=== PATIENT | female | born 1995 | race Caucasian/White ===

== ENCOUNTER 2017-02-24 18:00 | Emergency (ER) | payer OTHER, SELFPAY ==
[2017-02-24 18:23] VITALS: BP 121/66; PULSE 103; RESP 18; TEMP 37.2; O2SAT 99; BMI 24.5
[2017-02-24 18:50] LABS: Basophils % 0.1 % (0.1-2.0); Eosinophils # 0.1 K/mm3 (0.0-0.4); Eosinophils % 0.6 % (0.1-12.0); Hematocrit 38.3 % (37.0-47.0); Hemoglobin 13.1 g/dL (12.2-16.2); Lymphocytes # 0.6 K/mm3 (0.7-4.5); Lymphocytes % 3.6 K/mm3 (10-50); Mean Corpuscular HGB Conc 34.1 g/dL (31.8-35.4); Mean Corpuscular Hemoglobin 28.5 pg (27.0-31.2); Mean Corpuscular Volume 83.6 fl (81-99); Monocytes # 0.6 K/mm3 (0.1-1.0); Monocytes % 3.3 % (1.7-9.3); Neutrophils # 15.4 K/mm3 (1.8-7.8); Neutrophils % 92.3 % (37.0-80.0); Platelet Count 210 K/mm3 (142-424); Red Blood Count 4.58 M/mm3 (4.20-5.40); Red Cell Distribution Width 13.4 % (11.5-17.5); White Blood Count 16.7 K/mm3 (4.5-13.0)
[2017-02-24 18:56] LABS: MANUAL DIFFERENTIAL MANUAL DIFFERENTIAL (MANUAL DIFF)
[2017-02-24 19:04] LABS: Alanine Aminotransferase 14 U/L (12-78); Albumin Level 4.3 gm/dL (3.4-5.0); Albumin/Globulin Ratio 1.4 (1.1-1.8); Alkaline Phosphatase 73 U/L (46-116); Aspartate Amino Transferase 14 U/L (15-37); Bilirubin,Total 0.6 mg/dL (0.2-1.0); Blood Urea Nitrogen 10 mg/dL (7-18); Carbon Dioxide 23 mmol/L (21.0-32.0); Chloride 103 mmol/L (98-107); Creatinine Clearance Estimated 143 mL/min (0-300); Creatinine,Serum 0.59 mg/dL (0.55-1.02); Estimated Glomerular Filt Rate 131 ml/min (>60); GFR (African American) 159 ML/MIN (>60); Glucose 94 mg/dL (74-106); Sodium 138 mmol/L (136-145); Total Protein,Serum 7.3 gm/dL (6.4-8.2)
[2017-02-24 19:26] LABS: Lymphocytes % 6 % (10-50); Neutrophils % 87 % (42-76); Platelet Estimate Normal; RBC Morphology Normal; Total Cells Counted 100
[2017-02-24 19:43] LABS: Microscopic, Urine URINE MICROSCOPIC (MICROSCOPIC)
[2017-02-24 19:47] LABS: Appearance,Urine Clear (Clear); Color,Urine Yellow (Yellow); PH,Urine 5.5 (5.0-8.5)
[2017-02-24 19:48] LABS: Bilirubin,Urine Negative (Negative); Blood, Urine Negative (Negative); Glucose,Urine (UA) Negative (Negative); Ketones,Urine 2+ (Negative); Leukocyte Esterase,Urine Negative (Negative); Nitrate,Urine Negative (Negative); Protein,Urine Negative (Negative); Specific Gravity, Urine >= 1.030 (1.005-1.030); Urobilinogen,Urine 0.2 EU/dl (0.2)
[2017-02-24 19:49] LABS: Mucus,Urine 1+ /lpf; WBC,Urine Occasional #/hpf (0-3)
--- NOTE | 2017-02-24 20:39 | HMH.EDNVD ---
ED Disposition Clinical Impression: Dehydration Nausea and vomiting Qualifiers: Vomiting type: unspecified Vomiting Intractability: unspecified Qualified Code(s): R11.2 - Nausea with vomiting, unspecified Disposition: Home, Self-Care Condition on Discharge: Fair Instructions: DI for Dehydration -- Adult, Nausea and Vomiting-Adult Additional Instructions: Please plenty of fluids, take the medications prescribed as needed for nausea, follow-up with your OB within 12 hours if not better. If unable to see her OB please return promptly to the face, same, emergency room for reevaluation. Prescriptions: Doxylamine/Pyridoxine HCl [Diclegis 10mg-10mg tablet] 1 each PO TID PRN #20 tablet.dr CONWAY Reason: Nausea Referrals: Jong Rivas [Primary Care Provider] - Time of Disposition: 22:30 - Critical Care Critical Care Time: No Attestation: On 02/24/17, the high probability of a clinically significant, sudden or life threatening deterioration of the following system(s) required my full and direct attention, intervention and personal management. The time I documented below is in addition to time spent performing reported procedures but includes the following listed in this critical care notation. Medical Decision Making - Medical Records Medical records reviewed: Yes: I reviewed the patient's medical records. Vital Signs: 02/24/17 18:23 02/24/17 20:44 Temperature 99 F 97.9 F Temperature Source Oral Oral Pulse Rate 89 Pulse Rate [Right Brachial] 103 H Respiratory Rate 18 16 Blood Pressure 110/65 Blood Pressure [Right Arm] 121/66 Blood Pressure Mean [Right Arm] 84 Blood Pressure Source Automatic Cuff Blood Pressure Source [Right Arm] Automatic Cuff Blood Pressure Position Supine Blood Pressure Position [Right Arm] Sitting 02 Sat by Pulse Oximetry 99 Oxygen Delivery Method Room Air Room Air - Lab Data Lab results reviewed: Yes: I reviewed the patient's lab results. Lab Results 02/24/17 18:35: WBC 16.7 H, RBC 4.58, Hgb 13.1, Hct 38.3, MCV 83.6, MCH 28.5, MCHC 34.1, RDW 13.4, Plt Count 210, MPV 7.0 L, Neut % (Auto) 92.3 H, Lymph % (Auto) 3.6 L, [place] % (Auto) 3.3, Eos % (Auto) 0.6, Baso % (Auto) 0.1, Neut # (Auto) 15.4 H, Lymph # (Auto) 0.6 L, [place] # (Auto) 0.6, Eos # (Auto) 0.1, Baso # (Auto) 0.0, Total Counted 100, Neutrophils % (Manual) 87 H, Band Neutrophils % 7.0, Lymphocytes % (Manual) 6 L, Platelet Estimate Normal, RBC Morphology Normal 02/24/17 18:35: Sodium 138, Potassium 4.0, Chloride 103, Carbon Dioxide 23, Anion Gap 16.0 H, BUN 10, Creatinine 0.59, Estimated Creat Clear 143, Estimated GFR 131, Est GFR ( Amer) 159, Glucose 94, Calcium 9.0, Total Bilirubin 0.6, AST 14 L, ALT 14, Alkaline Phosphatase 73, Total Protein 7.3, Albumin 4.3, Globulin 3.0, Albumin/Globulin Ratio 1.4 02/24/17 19:25: Urine Color Yellow, Urine Appearance Clear, Urine pH 5.5, Ur Specific [place] >= 1.030, Urine Protein Negative, Urine Glucose (UA) Negative, Urine Ketones 2+, Urine Blood Negative, Urine Nitrate Negative, Urine Bilirubin Negative, Urine Urobilinogen 0.2, Ur Leukocyte Esterase Negative, Urine WBC Occasional, Ur Squamous Epith Cells 5-10, Urine Mucus 1+ Result diagrams: 02/24/17 18:35 02/24/17 18:35 Orders (Tests/Meds): ED MEDICATIONS Discontinued Medications Generic Name Dose Route Start Last Admin Trade Name Carlie PRN Reason Stop Dose Admin Lactated Ringer's 1,000 mls @ 999 mls/hr 02/24/17 19:00 02/24/17 18:50 Lactated Ringer's 1000 Ml Bag IV 02/24/17 20:00 999 mls/hr .Q1H1M BRETT Administration Lactated Ringer's 1,000 mls @ 999 mls/hr 02/24/17 20:45 Lactated Ringer's 1000 Ml Bag IV 02/24/17 21:45 .Q1H1M BRETT Promethazine HCl 12.5 mg 02/24/17 20:38 02/24/17 21:29 Phenergan 25mg/Ml 1ml Vial IV 02/24/17 20:39 12.5 mg ONCE ONE Administration Promethazine HCl 12.5 mg 02/24/17 21:40 02/24/17 23:11 Phenergan 25mg/Ml 1ml Vial IV 02/24/17 21:41 Not Given ON
--- NOTE | 2017-02-24 20:42 | ED_ITS ---
ED Disposition Clinical Impression: Dehydration Nausea and vomiting Qualifiers: Vomiting type: unspecified Vomiting Intractability: unspecified Qualified Code( s): R11.2 - Nausea with vomiting, unspecified Disposition: Home, Self-Care Condition on Discharge: Fair Instructions: DI for Dehydration -- Adult, Nausea and Vomiting-Adult Additional Instructions: Please plenty of fluids, take the medications prescribed as needed for nausea, follow-up with your OB within 12 hours if not better. If unable to see her OB please return promptly to the face, same, emergency room for reevaluation. Prescriptions: Doxylamine/Pyridoxine HCl [Diclegis 10mg-10mg tablet] 1 each PO TID PRN #20 tablet.dr CONWAY Reason: Nausea Referrals: Jong Rivas [Primary Care Provider] - Time of Disposition: 22:30 - Critical Care Critical Care Time: No Attestation: On 02/24/17, the high probability of a clinically significant, sudden or life threatening deterioration of the following system(s) required my full and direct attention, intervention and personal management. The time I documented below is in addition to time spent performing reported procedures but includes the following listed in this critical care notation. Medical Decision Making - Medical Records Medical records reviewed: Yes: I reviewed the patient's medical records. Vital Signs: 02/24/17 18:23 02/24/17 20:44 Temperature 99 F 97.9 F Temperature Source Oral Oral Pulse Rate 89 Pulse Rate [Right Brachial] 103 H Respiratory Rate 18 16 Blood Pressure 110/65 Blood Pressure [Right Arm] 121/66 Blood Pressure Mean [Right Arm] 84 Blood Pressure Source Automatic Cuff Blood Pressure Source [Right Arm] Automatic Cuff Blood Pressure Position Supine Blood Pressure Position [Right Arm] Sitting 02 Sat by Pulse Oximetry 99 Oxygen Delivery Method Room Air Room Air - Lab Data Lab results reviewed: Yes: I reviewed the patient's lab results. Lab Results 02/24/17 18:35: WBC 16.7 H, RBC 4.58, Hgb 13.1, Hct 38.3, MCV 83.6, MCH 28.5, MCHC 34.1, RDW 13.4, Plt Count 210, MPV 7.0 L, Neut % (Auto) 92.3 H, Lymph % ( Auto) 3.6 L, [place] % (Auto) 3.3, Eos % (Auto) 0.6, Baso % (Auto) 0.1, Neut # ( Auto) 15.4 H, Lymph # (Auto) 0.6 L, [place] # (Auto) 0.6, Eos # (Auto) 0.1, Baso # (Auto) 0.0, Total Counted 100, Neutrophils % (Manual) 87 H, Band Neutrophils % 7.0, Lymphocytes % (Manual) 6 L, Platelet Estimate Normal, RBC Morphology Normal 02/24/17 18:35: Sodium 138, Potassium 4.0, Chloride 103, Carbon Dioxide 23, Anion Gap 16.0 H, BUN 10, Creatinine 0.59, Estimated Creat Clear 143, Estimated GFR 131, Est GFR ( Amer) 159, Glucose 94, Calcium 9.0, Total Bilirubin 0.6, AST 14 L, ALT 14, Alkaline Phosphatase 73, Total Protein 7.3, Albumin 4.3, Globulin 3.0, Albumin/Globulin Ratio 1.4 02/24/17 19:25: Urine Color Yellow, Urine Appearance Clear, Urine pH 5.5, Ur Specific [place] >= 1.030, Urine Protein Negative, Urine Glucose (UA) Negative, Urine Ketones 2+, Urine Blood Negative, Urine Nitrate Negative, Urine Bilirubin Negative, Urine Urobilinogen 0.2, Ur Leukocyte Esterase Negative, Urine WBC Occasional, Ur Squamous Epith Cells 5-10, Urine Mucus 1+ Result diagrams: 02/24/17 18:35 02/24/17 18:35 Orders (Tests/Meds): ED MEDICATIONS Discontinued Medications Generic Name Dose Route Start Last Admin Trade Name Freq PRN Reason Stop Dose Admin Lactated Ringer's 1,000
[2017-02-24 20:44] VITALS: BP 110/65; PULSE 89; RESP 16; TEMP 36.6; O2SAT 98
--- NOTE | 2017-02-24 23:12 | PC.PHONENOTE ---
PT REFUSED PROMETHAZINE AND WAS NOT WILLING TO DRINK PO FLUIDS. PT REFUSED TO BE ADMITTED.
== END 2017-02-24 22:43 | disposition home or self-care (01) ==
LOC: ER 18:27
PROVIDERS: Emergency Medicine; Emergency Provider Emergency Medicine; Family Provider Specialist; PCP Specialist
DX: O26.891 Other specified pregnancy related conditions, first trimester (principal); E86.0 Dehydration; O21.9 Vomiting of pregnancy, unspecified; Z3A.11 11 weeks gestation of pregnancy
CPT/HCPCS: 80053; 81001; 85007; 85025; 96361; 96365; 96367; 96374; 96375; 99283

== ENCOUNTER → 2018-05-30 13:20 | Outpatient (CLI) | payer OTHER, SELFPAY ==
[2018-05-30 16:12] LABS: HCG Qualitative, Serum Negative (Negative)
== END ==
PROVIDERS: Visit Provider Emergency Medicine
DX: N91.2 Amenorrhea, unspecified (principal)
CPT/HCPCS: 36415; 84703

== ENCOUNTER → 2018-06-30 17:56 | Outpatient (CLI) | payer OTHER, SELFPAY ==
[2018-06-30 18:53] LABS: Basophils % 0.3 % (0.1-2.0); Eosinophils # 0.1 K/mm3 (0.0-0.4); Eosinophils % 1.1 % (0.1-12.0); Hematocrit 36.4 % (37.0-47.0); Hemoglobin 12.4 g/dL (12.2-16.2); Lymphocytes # 1.4 K/mm3 (0.7-4.5); Lymphocytes % 16.9 % (10-50); Mean Corpuscular Hemoglobin 29.3 pg (27.0-31.2); Mean Corpuscular Volume 86.4 fl (81-99); Mean Platelet Volume 7.4 fl (7.4-10.4); Monocytes # 0.4 K/mm3 (0.1-1.0); Monocytes % 5.2 % (1.7-9.3); Neutrophils # 6.1 K/mm3 (1.8-7.8); Neutrophils % 76.4 % (37.0-80.0); Platelet Count 258 K/mm3 (142-424); Red Blood Count 4.22 M/mm3 (4.20-5.40)
[2018-06-30 19:06] LABS: Monoscreen (Rapid) Negative (Negative)
[2018-06-30 19:24] LABS: Alanine Aminotransferase 19 U/L (12-78); Albumin Level 4.4 gm/dL (3.4-5.0); Albumin/Globulin Ratio 1.4 (1.1-1.8); Alkaline Phosphatase 72 U/L (46-116); Aspartate Amino Transferase 12 U/L (15-37); Bilirubin,Total 0.4 mg/dL (0.2-1.0); Blood Urea Nitrogen 8 mg/dL (7-18); Carbon Dioxide 25 mmol/L (21.0-32.0); Chloride 103 mmol/L (98-107); Creatinine,Serum 0.71 mg/dL (0.55-1.02); Estimated Glomerular Filt Rate 104 ml/min (>60); Free T4 (Free Thyroxine) 0.85 ng/dl (0.76-1.46); GFR (African American) 126 ML/MIN (>60); Globulin 3.2 gm/dl (1.3-3.2); Glucose 108 mg/dL (74-106); Sodium 140 mmol/L (136-145); Thyroid Stimulating Hormone 5.67 uIU/ml (0.358-3.740); Total Protein,Serum 7.6 gm/dL (6.4-8.2)
[2018-07-03 12:33] LABS: EBV Ab VCA, IgM <36.0 U/mL (0.0-35.9); Epstein-Barr Virus Early Ag Ab <9.0 U/mL (0.0-8.9)
== END ==
PROVIDERS: PCP Emergency Medicine; Visit Provider Emergency Medicine
DX: R53.83 Other fatigue (principal)
CPT/HCPCS: 80053; 84439; 84443; 85025; 86318; 86663; 86664; 86665

== ENCOUNTER → 2018-07-10 15:36 | Outpatient (CLI) | payer OTHER, SELFPAY ==
[2018-07-10 16:09] LABS: Basophils % 0.2 % (0.1-2.0); Eosinophils # 0.1 K/mm3 (0.0-0.4); Hematocrit 37.2 % (37.0-47.0); Hemoglobin 12.9 g/dL (12.2-16.2); Lymphocytes # 1.6 K/mm3 (0.7-4.5); Lymphocytes % 13.3 % (10-50); Mean Corpuscular HGB Conc 34.6 g/dL (31.8-35.4); Mean Corpuscular Hemoglobin 28.8 pg (27.0-31.2); Mean Corpuscular Volume 83.3 fl (81-99); Mean Platelet Volume 6.7 fl (7.4-10.4); Monocytes # 0.4 K/mm3 (0.1-1.0); Monocytes % 3.6 % (1.7-9.3); Neutrophils # 9.6 K/mm3 (1.8-7.8); Platelet Count 246 K/mm3 (142-424); Red Blood Count 4.47 M/mm3 (4.20-5.40); Red Cell Distribution Width 12.5 % (11.5-17.5); White Blood Count 11.7 K/mm3 (4.8-10.8)
[2018-07-12 10:47] LABS: HIV Screen 4th Generation wRfx Non Reactive (Non Reactive); Hepatitis B Surface Antigen Negative (Negative); Hepatitis C Antibody 0.1 s/co ratio (0.0-0.9); Rapid Plasma Reagin Ab Titer Non Reactive (NonRea<1:1); Rubella Antibodies, IgG 4.75 index (Immune >0.99)
== END ==
PROVIDERS: Visit Provider Obstetrics & Gynecology
DX: Z34.90 Encounter for supervision of normal pregnancy, unspecified, unspecified trimester (principal)
CPT/HCPCS: 36415; 85025; 86592; 86703; 86762; 86850; 87340; 87380; G0432

== ENCOUNTER → 2018-10-08 13:31 | Outpatient (CLI) | payer OTHER, SELFPAY ==
--- NOTE | 2018-10-08 13:33 | US_ITS ---
PROCEDURE: US OB /MATERNAL DETAIL CLINICAL INDICATION: US OB Complete COMPARISON: No exams were available for comparison FINDINGS: Single viable intrauterine gestation. Cephalic position. Placenta: Posteriorplacenta grade 1. There is average amount fluid. The cervix appears satisfactory. Closed and measuring 3 cm the in length. Complete survey performed and was unremarkable on the submitted images as in PACS. No discrete anomalies identified on survey imaging by technologist. Active fetus. Three-vessel cord with satisfactory umbilical cord insertion. 4- chamber heart noted. Survey of brain & ventricles Unremarkable. Face and neck survey unremarkable. Diaphragm and chest views unremarkable. Abdomen: Both kidneys noted and unremarkable. Stomach noted and satisfactory. Spine: Survey of the spine satisfactory with no anomalies identified nor imaged. Both arms and legs noted. Amniotic Fluid: Adequate. Maternal adnexa: No significant findings. Measurements: Average ultrasound age 19.29 week. Gestational Age 19.29 week Estimated due date by ultrasound age 0103/02/2019. Estimated weight 270.1 ggrams. BPD = 19 weeks 4 days OFD = 20 weeks 2 days HC = 19 weeks 2 days AC = 19 weeks 0 days FL = 19 weeks 1 day Growth Percentile= 39 percent% Heart Rate = 143 bpm Cerebellum = 20 weeks 0 days Humerus = 19 weeks 1 day HC/AC is 1.22 CI is 0.75 FL/BPD is 0.66 FL/AC is 0.22 IMPRESSION: There is a single live fetus which is in cephalic presentation with an average ultrasound age of 19 weeks and 2 days. All parameters correlate. No obvious anomalies. Please see above for details Dictated by: Elliott Franco MD 10/08/2018 17:18 Signed by: <Electronically signed by Elliott Franco MD in [place]> 10/08/2018 17:18
== END ==
PROVIDERS: PCP Emergency Medicine; Visit Provider Obstetrics & Gynecology
DX: Z36.0 Encounter for antenatal screening for chromosomal anomalies (principal)
CPT/HCPCS: 76811

== ENCOUNTER 2018-12-10 10:59 | Outpatient (CLI) | payer OTHER, SELFPAY ==
[2018-12-10 11:26] LABS: Hematocrit 33.7 % (37.0-47.0); Hemoglobin 11.6 g/dL (12.2-16.2)
[2018-12-10 12:37] LABS: Glucose,Fasting 90 mg/dL (60-105)
[2018-12-10 13:05] VITALS: BP 124/65; PULSE 88; RESP 20; O2SAT 100
[2018-12-10 13:46] LABS: Thyroid Stimulating Hormone 3.67 uIU/ml (0.358-3.740)
[2018-12-10 13:55] LABS: Glucose 1 Hour 145 mg/dL (74-106)
== END 2018-12-10 13:20 | disposition home or self-care (01) ==
LOC: LAB 11:00 → INF 12:53
PROVIDERS: Visit Provider Obstetrics & Gynecology
DX: Z34.90 Encounter for supervision of normal pregnancy, unspecified, unspecified trimester (principal); E03.9 Hypothyroidism, unspecified; Z3A.24 24 weeks gestation of pregnancy
CPT/HCPCS: 36415; 82951; 84443; 85014; 85018; 96372; J2790

== ENCOUNTER → 2019-01-23 11:40 | Outpatient (CLI) | payer OTHER, SELFPAY | PROVIDERS: PCP Emergency Medicine; Visit Provider Internal Medicine Cardiovascular Disease | DX: R55 Syncope and collapse (principal); Q21.1 Atrial septal defect; R94.31 Abnormal electrocardiogram [ECG] [EKG] | CPT/HCPCS: 93225 ==

== ENCOUNTER 2019-02-07 20:04 | Outpatient (CLI) | payer OTHER, SELFPAY ==
[2019-02-07 20:16] VITALS: BMI 30.6
[2019-02-07 20:33] LABS: Microscopic, Urine URINE MICROSCOPIC (MICROSCOPIC)
[2019-02-07 20:44] LABS: Appearance,Urine CLEAR (Clear); Bilirubin,Urine Negative (Negative); Blood, Urine Negative (Negative); Color,Urine YELLOW (Yellow); Glucose,Urine (UA) Negative (Negative); Ketones,Urine Negative (Negative); Leukocyte Esterase,Urine TRACE (Negative); Nitrate,Urine Negative (Negative); Protein,Urine Negative (Negative); Urobilinogen,Urine 0.2 EU/dl (0.2)
[2019-02-07 20:47] VITALS: BP 131/67; PULSE 109; RESP 17; TEMP 36.8; O2SAT 98; BMI 30.6
[2019-02-07 20:51] LABS: Amorphous Sediment,Urine 1+ /lpf; Amphetamine/Metha Screen,Urine Negative ng/mL (<1000); Bacteria,Urine Trace /lpf; Barbiturates Screen,Urine Negative ng/mL (<200); Benzodiazepines Screen,Urine Negative ng/mL (<200); Cannabinoid Screen,Urine Negative ng/mL (<50); Cocaine Screen,Urine Negative ng/mL (<300); Methadone Screen,Urine Negative ng/mL (<300); Opiate Screen,Urine Negative ng/mL (<300); Phencyclidine Screen,Urine Negative ng/mL (<25); WBC,Urine Occasional #/hpf (0-3)
== END 2019-02-07 21:00 | disposition home or self-care (01) ==
LOC: OBOUT 20:07 → OB 20:08
PROVIDERS: PCP Obstetrics & Gynecology; Visit Provider Nurse Practitioner Obstetrics & Gynecology
DX: O36.8130 Decreased fetal movements, third trimester, not applicable or unspecified (principal); Z3A.36 36 weeks gestation of pregnancy
CPT/HCPCS: 59025; 80305; 81001

== ENCOUNTER → 2019-02-12 18:16 | Outpatient (CLI) | payer OTHER, SELFPAY ==
[2019-02-17 16:11] LABS: Neisseria gonorrhoeae, NAA Negative (Negative)
== END ==
PROVIDERS: Visit Provider Obstetrics & Gynecology
DX: Z34.90 Encounter for supervision of normal pregnancy, unspecified, unspecified trimester (principal)
CPT/HCPCS: 86403; 87491; 87591

== ENCOUNTER 2019-02-19 10:12 | Inpatient (IN) ==
[2019-02-19 11:00] LABS: Basophils % 0.2 % (0.1-2.0); Eosinophils # 0.1 K/mm3 (0.0-0.4); Eosinophils % 0.7 % (0.1-12.0); Hematocrit 30.9 % (37.0-47.0); Hemoglobin 10.4 g/dL (12.2-16.2); Lymphocytes # 1.6 K/mm3 (0.7-4.5); Lymphocytes % 14.1 % (10-50); Mean Corpuscular HGB Conc 33.8 g/dL (31.8-35.4); Mean Corpuscular Volume 88.1 fl (81-99); Mean Platelet Volume 9.2 fl (7.4-10.4); Monocytes # 0.5 K/mm3 (0.1-1.0); Monocytes % 4.6 % (1.7-9.3); Neutrophils % 80.4 % (37.0-80.0); Platelet Count 230 K/mm3 (142-424); Red Blood Count 3.51 M/mm3 (4.20-5.40); Red Cell Distribution Width 14.4 % (11.5-17.5); White Blood Count 11.1 K/mm3 (4.8-10.8)
[2019-02-19 11:08] LABS: Activated Partial Thrombo Time 23.4 seconds (23.6-34.0); INR 0.97 (0.9-1.1); Prothrombin Time 10.1 seconds (9.4-11.8)
[2019-02-19 11:10] LABS: Anion Gap 14.4 mEq/L (5-15); Uric Acid 5.1 mg/dL (2.6-7.2)
[2019-02-19 12:44] LABS: Amphetamine/Metha Screen,Urine Negative ng/mL (<1000); Barbiturates Screen,Urine Negative ng/mL (<200); Benzodiazepines Screen,Urine Negative ng/mL (<200); Cannabinoid Screen,Urine Negative ng/mL (<50); Cocaine Screen,Urine Negative ng/mL (<300); Methadone Screen,Urine Negative ng/mL (<300); Opiate Screen,Urine Negative ng/mL (<300); Phencyclidine Screen,Urine Negative ng/mL (<25)
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
--- NOTE | 2019-02-19 14:52 | Progress Note ---
[facility] Anesthesia Checklist - Patient Identification Patient Identification: Arm Band - Structural Data Admitted From: Home Planned Operative Procedure/s: labor epidural Consent for Planned Operative Procedure(s) Verified: Yes Verified Documents: Surgical Consent, History and Physical - NPO Status Verified Time NPO: 00:00 - Additional verifications Anesthesia Reactions: No - Airway Assessment C-Spine Mobility Assessed: Yes (mp2) TMJ Mobility Assessed: Yes Dentition: Good Dentition - Neurological Assessment Level of Consciousness: Awake, Alert - Anesthesia Plan Anesthesia Risk discussed: Yes Anesthesia Plan: Verified ASA Class: II Anesthesia Type: Epidural [facility] History I have reviewed the patient's past medical history: Yes Medical History: Reports:: Anxiety, Depression *Have you ever received a pneumonia vaccine?: No *Have you received a flu vaccine this season?: Yes Other Medical History: Reports: Hypothyroidism, Other Anesthesia experience/problems:: nac Laterality Cases: Bilateral: Tonsillectomy Other Surgeries: Yes: Cardiac Surgery, Cholecystectomy, Dilation and Curettage. No: Amputation: No Fractures: No - *Social History Smoking Status: Never smoker Tobacco Type: smokeless tobacco Alcohol Intake: never Alcohol Intake Frequency:: holidays/special occasions only Substance Use Type: denies use *Occupational Status:: unemployed Housing: house Household Members: family *Travel in the last 8 weeks: None - Psychiatric History Pschychiatric History:: Reports:: Anxiety, Depression Family Hx:: Cancer, Heart Attack, Hypertension Para: 2
[2019-02-19 15:35] LABS: Microscopic, Urine URINE MICROSCOPIC (MICROSCOPIC)
[2019-02-19 15:36] LABS: Appearance,Urine CLEAR (Clear); Bilirubin,Urine Negative (Negative); Blood, Urine 1+ (Negative); Color,Urine YELLOW (Yellow); Glucose,Urine (UA) Negative (Negative); Ketones,Urine Negative (Negative); Leukocyte Esterase,Urine Negative (Negative); Protein,Urine Negative (Negative); Specific Gravity, Urine >= 1.030 (1.005-1.030); Urobilinogen,Urine 0.2 EU/dl (0.2)
[2019-02-19 15:53] LABS: Bacteria,Urine Trace /lpf
--- NOTE | 2019-02-19 18:55 | Procedure Note ---
- Delivery Note Delivery Date:: 02/19/19 Delivery Time:: 18:43 Anesthesia Type: Epidural Was labor medically induced?: Yes Induction method: per pitocin protocol Infant delivered prior to 39 weeks?: Yes Justification for early elective delivery:: Gestational Hypertension Infant Gender: Female at 1 minute: 6 at 5 minutes: 8 Delivery Procedure:: Spontaneous vaginal delivery of liveborn female over intact perineum. Delivery uncomplicated No nuchal cord or shoulder dystocia with delivery placed in CARLOS with mother immediately after umbilical cord clamped/cut, with standard nursing assessment performed Apgars: Placenta spontaneously expressed and examined; noted to be complete/intact. Vulva, vagina, and cervix inspected; no lacerations + uterine atony treating with IV pitocin, IM methergine Followed by subcutaneous hemabate and finally rectal cytotec EBL: 600 cc All sponge/needle/instrument counts correct at conclusion of procedure Disposition: Mom/baby stable to recovery in LDRP Placental Delivery Description: Spontaneous (uterine atony with hemorrheage EBL 600cc. Given methergine, hemabate and cytotec)
[2019-02-19 20:07] LABS: Hematocrit 31.6 % (37.0-47.0); Hemoglobin 10.6 g/dL (12.2-16.2)
[2019-02-20 07:05] LABS: Hematocrit 26.8 % (37.0-47.0)
[2019-02-20 07:21] LABS: Hemoglobin 9.1 g/dL (12.2-16.2)
--- NOTE | 2019-02-20 10:25 | Progress Note ---
Internal Medicine - PN: Subj *Date: 02/20/19 *Time: 10:20 Interval history: PPD #1 Initially had excessive bleeding with hemorrhage, but was quickly controlled with uterotonic agents. Hgb this am 9.1 (10.4 at admission) and she is asymptomatic with this [id number] anemia. Pain control sufficient Tolerating a regular diet Ambulating and voiding without difficulty Exam Vital signs and Labs for Last 24 Hours: Laboratory Results - last 24 hr 02/19/19 10:48: WBC 11.1 H, RBC 3.51 L, Hgb 10.4 L, Hct 30.9 L, MCV 88.1, MCH 29.8, MCHC 33.8, RDW 14.4, Plt Count 230, MPV 9.2, Neut % (Auto) 80.4 H, Lymph % (Auto) 14.1, [place] % (Auto) 4.6, Eos % (Auto) 0.7, Baso % (Auto) 0.2, Neut # (Auto) 9.0 H, Lymph # (Auto) 1.6, [place] # (Auto) 0.5, Eos # (Auto) 0.1, Baso # (Auto) 0.0 02/19/19 10:48: PT 10.1, INR 0.97, APTT 23.4 L, Fibrinogen 374, D-Dimer 2510 H* 02/19/19 10:48: Sodium 136, Potassium 3.4 L, Chloride 103, Carbon Dioxide 22, Anion Gap 14.4, BUN 5 L, Creatinine 0.67, Estimated Creat Clear 153, Estimated GFR 111, Est GFR ( Amer) 134, Glucose 130 H, Uric Acid 5.1, Calcium 9.0, Magnesium 1.6, AST 12 L, ALT 14 02/19/19 10:48: Blood Type O Negative, Antibody Screen Positive 02/19/19 10:48: Antibody Identification Anti-D 02/19/19 12:25: Urine Opiates Screen Negative, Urine Methadone Screen Negative, Ur Barbituates Screen Negative, Ur Phencyclidine Scrn Negative, Ur Amphetamines Screen Negative, U Benzodiazepines Scrn Negative, Urine Cocaine Screen Negative, U Marijuana (THC) Screen Negative 02/19/19 12:25: Urine Color Yellow, Urine Appearance Clear, Urine pH 6.0, Ur Specific [place] >= 1.030, Urine Protein Negative, Urine Glucose (UA) Negative, Urine Ketones Negative, Urine Blood 1+, Urine Nitrate Negative, Urine Bilirubin Negative, Urine Urobilinogen 0.2, Ur Leukocyte Esterase Negative, Urine WBC 3-5, Ur Squamous Epith Cells 3-5, Urine Bacteria Trace 02/19/19 20:00: Hgb 10.6 L, Hct 31.6 L 02/19/19 22:55: Influenza Type A Ag Negative, Influenza Type B Ag Negative 02/20/19 06:35: Hgb 9.1 L D, Hct 26.8 L I & O for Last 24 hours: Intake & Output 02/17/19 02/18/19 02/19/19 02/20/19 11:59 11:59 11:59 11:59 Weight 161 lb Narrative: CONSTITUTIONAL: no acute distress HEENT: mucous membranes moist PULMONARY: breathing unlabored without audible wheezes CV: no tachycardia or visible JVD; normal LE peripheral pulses ABD: soft, NT/ND, no guarding : fundus firm at/below umbilicus SKIN: no visible rash or lesions EXT: 1+ edema LEs NEURO: alert/oriented, no altered mental status PSYCH: appropriate mood and demeanor without visible anxiety/depression Assessment and Plan (1) Hypertension affecting Current visit: Yes Status: Acute Category: Medical Code(s): O16.9 - Unspecified maternal hypertension, unspecified trimester (2) Vaginal delivery Current visit: Yes Status: Acute Category: Medical Code(s): O80 - Encounter for full-term uncomplicated delivery (3) Uterine atony Current visit: Yes Status: Acute Category: Medical Code(s): O62.2 - Other uterine inertia (4) Anemia associated with acute blood loss Current visit: Yes Status: Acute Category: Medical Code(s): D62 - Acute posthemorrhagic anemia (5) Anemia affecting Current visit: Yes Status: Acute Category: Medical Code(s): O99.019 - Anemia complicating , unspecified trimester (6) Rh negative status during Current visit: Yes Status: Acute Category: Medical Code(s): O26.899 - Other specified related conditions, unspecified trimester; Z67.91 - Unspecified blood type, Rh negative - Assessment and plan all Dx Assessment and Plan for all problems:: Routine care PNV with FeSO4 for anemia Anticipate discharge home tomorrow
[2019-02-21 06:51] LABS: Anion Gap 16.1 mEq/L (5-15); Calcium 8.8 mg/dL (8.5-10.1)
--- NOTE | 2019-02-21 13:56 | Discharge Summary ---
General - General Admission date:: 02/19/19 Discharge date: 02/21/19 HPI HPI: IOL at 38+ wks for GHTN and decreased movement Uncomplicated delivery course uneventful BP normal Tolerating regular diet Ambulating and voiding without difficulty Discharged home on PPD #2 Hospital Course Rhogam Administration: Given Objective Narrative: CONSTITUTIONAL: no acute distress HEENT: mucous membranes moist PULMONARY: breathing unlabored without audible wheezes CV: no tachycardia or visible JVD; normal LE peripheral pulses ABD: soft, NT/ND, no guarding : fundus firm at/below umbilicus SKIN: no visible rash or lesions EXT: 1+ edema LEs NEURO: alert/oriented, no altered mental status PSYCH: appropriate mood and demeanor without visible anxiety/depression Results Labs on day of discharge: Labs from last 24 hours 02/21/19 02/21/19 02/20/19 05:50 05:50 18:05 Sodium 141 Potassium 4.1 D Chloride 105 Carbon Dioxide 24 Anion Gap 16.1 H BUN 10 D Creatinine 0.67 Estimated Creat Clear 153 Estimated GFR 111 Est GFR ( Amer) 134 Glucose 109 H Hemoglobin A1c 5.3 Calcium 8.8 Blood Type Antibody Screen Antibody Identification Screen Baby's Rh Status Rhogam Infusion Rhogam release 02/20/19 02/20/19 15:44 15:44 Sodium Potassium Chloride Carbon Dioxide Anion Gap BUN Creatinine Estimated Creat Clear Estimated GFR Est GFR ( Amer) Glucose Hemoglobin A1c Calcium Blood Type O Negative Antibody Screen Positive Antibody Identification Pending Screen Negative Baby's Rh Status Positive Rhogam Infusion DS: Diagnosis - Discharge Diagnosis (1) Hypertension affecting Status: Acute (2) Vaginal delivery Status: Acute (3) Uterine atony Status: Acute (4) Anemia associated with acute blood loss Status: Acute (5) Anemia affecting Status: Acute (6) Rh negative status during Status: Acute Discharge Plan - Patient Discharge Instructions ACTIVITY: Continue current activity DIET: regular diet Additional Instructions: NO HEAVY LIFTING OR STRENUOUS ACTIVITY NOTHING IN VAGINA FOR [address] FOLLOW-UP WITH DR. JUAREZ in 2 Patient Instructions: Depression, Hemorrhage, [facility] Post Discharge Instructions - Follow up Plan Disposition: Home, Self-Chcf Medications: Home Medications Medication Instructions Recorded Confirmed Type Levothyroxine Sodium 25 mcg PO DAILY 12/10/18 02/20/19 History [Levothyroxine 25mcg (0.025mg) Tab] Vit Calc,Iron,Folic [Kpn] 1 tab PO DAILY 12/10/18 02/20/19 History buPROPion HCl [Wellbutrin Sr] 150 mg PO DAILY 12/10/18 02/20/19 History Ibuprofen [Motrin 400mg 800 mg PO Q6HP PRN #40 tab 02/21/19 Rx tablet] Prescriptions/Medication Reconciliation: New Ibuprofen [Motrin 400mg tablet] 800 mg PO Q6HP PRN #40 tab PRN Reason: Mild To Moderate Pain Continued buPROPion HCl [Wellbutrin Sr] 150 mg PO DAILY Vit Calc,Iron,Folic [Kpn] 1 tab PO DAILY Levothyroxine Sodium [Levothyroxine 25mcg (0.025mg) Tab] 25 mcg PO DAILY - Problem Reconciliation Problems Reviewed?: Yes
== END 2019-02-21 15:15 | disposition home or self-care (01) | DRG 806 ==
LOC: OB 10:12
PROVIDERS: ADMIT Obstetrics & Gynecology; ATTEND Obstetrics & Gynecology
CPT/HCPCS: 36415; 59025; 80048; 80305; 81001; 83036; 83735; 84450; 84460; 84550; 85014; 85018; 85025; 85378; 85384; 85461; 85610; 85730; 86850; 86870; 87275; 87276; 94761; J0595; J2790

== ENCOUNTER → 2019-11-23 19:26 | Outpatient (CLI) | payer OTHER, SELFPAY ==
[2019-11-23 19:45] LABS: Basophils % 0.3 % (0.1-2.0); Eosinophils # 0.4 K/mm3 (0.0-0.4); Eosinophils % 3.5 % (0.1-12.0); Hematocrit 42.4 % (37.0-47.0); Hemoglobin 13.7 g/dL (12.2-16.2); Lymphocytes # 1.8 K/mm3 (0.7-4.5); Lymphocytes % 16.7 % (10-50); Mean Corpuscular HGB Conc 32.3 g/dL (31.8-35.4); Mean Corpuscular Volume 89.9 fl (81-99); Mean Platelet Volume 7.9 fl (7.4-10.4); Monocytes # 0.6 K/mm3 (0.1-1.0); Monocytes % 5.3 % (1.7-9.3); Neutrophils # 7.8 K/mm3 (1.8-7.8); Neutrophils % 74.3 % (37.0-80.0); Platelet Count 276 K/mm3 (142-424); Red Blood Count 4.71 M/mm3 (4.20-5.40); Red Cell Distribution Width 13.2 % (11.5-17.5); White Blood Count 10.5 K/mm3 (4.8-10.8)
[2019-11-23 21:43] LABS: Alanine Aminotransferase 13 U/L (12-78); Albumin Level 4.9 g/dl (3.5-5.0); Albumin/Globulin Ratio 1.6 (1.1-1.8); Alkaline Phosphatase 79 U/L (38-126); Anion Gap 15.9 mEq/L (5-15); Aspartate Amino Transferase 24 U/L (14-36); Bilirubin,Total 0.4 mg/dl (0.2-1.3); Blood Urea Nitrogen 13 mg/dl (7-17); Calcium 10.6 mg/dl (8.4-10.2); Carbon Dioxide 26 mmol/L (22.0-30.0); Chloride 104 mmol/L (98-107); Cholesterol 212 mg/dl (140-200); Estimated Glomerular Filt Rate 105 ml/min (>60); GFR (African American) 127 ML/MIN (>60); Glucose 100 mg/dl (74-100); HDL Cholesterol 71 mg/dl (40-60); Potassium 4.9 mmoL/L (3.5-5.1); Sodium 141 mmol/L (136-145); Total Protein,Serum 7.9 g/dl (6.3-8.2); Triglycerides 230 mg/dl (30-150); VLDL Cholesterol 46 mg/dL (0-40)
[2019-11-23 22:13] LABS: Thyroid Stimulating Hormone 6.46 uIU/mL (0.465-4.68)
[2019-11-25 08:39] LABS: Testosterone,Total 14 ng/dL (8-48)
[2019-11-26 10:16] LABS: FSH 3.7 mIU/mL (.); LH 3.5 mIU/mL (.)
[2019-11-29 15:03] LABS: Estrogen 440 pg/mL (.)
== END ==
PROVIDERS: Visit Provider Physician Assistant
DX: F52.31 Female orgasmic disorder (principal)
CPT/HCPCS: 80053; 80061; 82672; 83001; 83002; 84403; 84436; 84443; 85025

== ENCOUNTER → 2020-06-01 15:22 | Outpatient (CLI) | payer OTHER, SELFPAY ==
[2020-06-01 16:50] LABS: HCG,Quantitative < 2 mIU/ml (0-5.42)
== END ==
PROVIDERS: Visit Provider Obstetrics & Gynecology
DX: Z34.90 Encounter for supervision of normal pregnancy, unspecified, unspecified trimester (principal)
CPT/HCPCS: 36415; 84702

== ENCOUNTER → 2020-07-21 16:07 | Outpatient (CLI) | payer OTHER, SELFPAY ==
[2020-07-21 17:39] LABS: HCG,Quantitative < 2 mIU/ml (0-5.42)
== END ==
PROVIDERS: Visit Provider Obstetrics & Gynecology
DX: Z34.90 Encounter for supervision of normal pregnancy, unspecified, unspecified trimester (principal)
CPT/HCPCS: 36415; 84702

== ENCOUNTER → 2020-12-21 15:52 | Outpatient (CLI) | payer OTHER, SELFPAY ==
[2020-12-21 16:06] LABS: Basophils # 0.1 K/mm3 (0-0.2); Basophils % 0.5 % (0.1-2.0); Eosinophils # 0.1 K/mm3 (0.0-0.4); Eosinophils % 0.5 % (0.1-12.0); Lymphocytes # 1.6 K/mm3 (0.7-4.5); Lymphocytes % 12.5 % (10-50); Mean Corpuscular HGB Conc 33.4 g/dL (31.8-35.4); Mean Corpuscular Hemoglobin 30.1 pg (27.0-31.2); Mean Corpuscular Volume 90.3 fl (81-99); Mean Platelet Volume 9.1 fl (7.4-10.4); Monocytes # 0.5 K/mm3 (0.1-1.0); Monocytes % 4.2 % (1.7-9.3); Neutrophils # 10.2 K/mm3 (1.8-7.8); Neutrophils % 82.3 % (37.0-80.0); Platelet Count 238 K/mm3 (142-424); Red Blood Count 3.99 M/mm3 (4.20-5.40); Red Cell Distribution Width 14.4 % (11.5-17.5); White Blood Count 12.4 K/mm3 (4.8-10.8)
[2020-12-21 16:42] LABS: Chloride 105 mmol/L (98-107); Potassium 4.2 mmoL/L (3.5-5.1); Sodium 137 mmol/L (136-145)
[2020-12-21 16:45] LABS: Alanine Aminotransferase 8 U/L (12-78); Albumin Level 4.4 g/dl (3.5-5.0); Albumin/Globulin Ratio 1.6 (1.1-1.8); Alkaline Phosphatase 84 U/L (38-126); Anion Gap 12.2 mEq/L (5-15); Aspartate Amino Transferase 21 U/L (14-36); Bilirubin,Total 0.2 mg/dl (0.2-1.3); Blood Urea Nitrogen 5 mg/dl (7-17); Calcium 9.4 mg/dl (8.4-10.2); Carbon Dioxide 24 mmol/L (22.0-30.0); Estimated Glomerular Filt Rate 153 ml/min (>60); GFR (African American) 185 ML/MIN (>60); Globulin 2.8 g/dL (1.3-3.2); Glucose 95 mg/dl (74-100); Total Protein,Serum 7.2 g/dl (6.3-8.2)
[2020-12-21 17:15] LABS: C-Reactive Protein 9.7 mg/L (0-4)
[2020-12-21 20:18] LABS: Erythrocyte Sedimentation Rate 85 mm/hr (0-20)
[2020-12-23 07:11] LABS: RA Latex Turbid. <10.0 IU/mL (0.0-13.9)
[2020-12-23 12:11] LABS: Anti-Centromere B Antibodies 0.2 AI (0.0-0.9); Anti-DNA (DS) Ab Qn 2 IU/mL (0-9); Anti-Jo-1 <0.2 AI (0.0-0.9); Anti-Smith Antibody <0.2 AI (0.0-0.9); Antichromatin Antibodies 0.3 AI (0.0-0.9); Antiscleroderma-70 Antibodies <0.2 AI (0.0-0.9); RNP Antibodies 0.8 AI (0.0-0.9); Sjogren's Anti-SS-A <0.2 AI (0.0-0.9); Sjogren's Anti-SS-B <0.2 AI (0.0-0.9)
[2020-12-24 00:17] LABS: Anti-Cyclic Citrullinated Pept 6 units (0-19)
== END ==
PROVIDERS: Visit Provider Physician Assistant
DX: M54.50 Low back pain, unspecified (principal)
CPT/HCPCS: 80053; 85025; 85651; 86140; 86200; 86225; 86235; 86431

== ENCOUNTER 2021-01-30 16:42 | Emergency (ER) | payer OTHER, SELFPAY ==
[2021-01-30 18:00] VITALS: BP 158/89; PULSE 91; RESP 20; O2SAT 96; BMI 27.4
--- NOTE | 2021-01-30 18:00 | PC.NURSE ---
PATIENT REQUESTING UTC. INITIALLY PATIENT WAS REGISTERED FOR ER BUT WAS NOT WANTING TO WAIT ANY LONGER FOR ER BED.
[2021-01-30 18:20] VITALS: BP 158/89; PULSE 91; RESP 20; TEMP -17.7; TEMP 0; O2SAT 96
--- NOTE | 2021-01-30 18:20 | PC.NURSE ---
AFTER ASSESSMENT BY PROVIDER, PATIENT INFORMED THAT SHE SHOULD BE SEEN IN ER FOR FURTHER EVALUATION. PATIENT REFUSED AND IS GOING TO LEAVE AMA. PATIENT INFORMED OF RISKS ASSOCIATED WITH LEAVING AMA BY PROVIDER, PATIENT VERBALIZED UNDERSTANDING
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
== END 2021-01-30 18:23 | disposition left against medical advice (07) ==
PROVIDERS: Emergency Provider Nurse Practitioner; PCP Emergency Medicine
DX: S16.1XXA Strain of muscle, fascia and tendon at neck level, initial encounter (principal); V40.1XXA Car passenger injured in collision with pedestrian or animal in nontraffic accident, initial encounter; Y93.89 Activity, other specified; Z3A.30 30 weeks gestation of pregnancy; Z88.0 Allergy status to penicillin; Z88.2 Allergy status to sulfonamides
CPT/HCPCS: 99202; G0463

== ENCOUNTER 2021-02-11 08:28 | Emergency (ER) | payer OTHER, SELFPAY ==
[2021-02-11 08:29] VITALS: BP 109/57; PULSE 95; RESP 20; TEMP 37.1; O2SAT 98; BMI 33.4
[2021-02-11 08:45] VITALS: BP 109/57; PULSE 85; O2SAT 96
[2021-02-11 09:00] VITALS: BP 111/57; PULSE 86; O2SAT 96
--- NOTE | 2021-02-11 09:11 | HMH.EDGENADL ---
ED Disposition Clinical Impression: Strep pharyngitis Disposition: Home, Self-Care Condition on Discharge: Good Instructions: DI for Strep Throat Additional Instructions: You have been evaluated for sore throat. Diagnosed with strep pharyngitis. Please take 4 more days of azithromycin starting tomorrow. Tylenol for aches and pain. Follow-up with your primary care doctor and cyber legal advisor. Return to the emergency department for any new or worsening symptoms, difficulty swallowing or breathing or any other concerns. Prescriptions: Azithromycin [Z-Elio 250mg Tab] 250 mg PO DAILY #4 tab Transmission Status: Pending to [id number] Referrals: Flo Millan MD [Primary Care Provider] - Time of Disposition: 09:57 - Critical Care Critical Care Time: No Attestation: On 02/11/21, the high probability of a clinically significant, sudden or life threatening deterioration of the following system(s) required my full and direct attention, intervention and personal management. The time I documented below is in addition to time spent performing reported procedures but includes the following listed in this critical care notation. Medical Decision Making - Medical Records Medical records reviewed: Yes: I reviewed the patient's medical records. - Lex Inquiry Pt receiving controlled substance: No Vital Signs: 02/11/21 08:29 02/11/21 08:45 02/11/21 09:00 Temperature 98.7 F Temperature Source Oral Pulse Rate 85 86 Pulse Rate [Radial] 95 H Respiratory Rate 20 Blood Pressure 109/57 L 111/57 L Blood Pressure [Right Arm] 109/57 L Blood Pressure Mean [Right Arm] 74 Blood Pressure Position [Right Arm] Sitting 02 Sat by Pulse Oximetry 98 96 96 Oxygen Delivery Method Room Air - Lab Data Lab Results 02/11/21 08:35: Group A Strep Rapid Positive A Orders (Tests/Meds): ED MEDICATIONS Discontinued Medications Generic Name Dose Route Start Last Admin Trade Name Freq PRN Reason Stop Dose Admin Acetaminophen 325 mg 02/11/21 09:15 02/11/21 09:36 Acetaminophen 325mg Tab PO 02/11/21 09:16 325 mg ONCE ONE Administration Medical Decision Narrative: In summary this is a 25-year-old female presenting to the emergency department with sore throat. Patient clinically stable on arrival. Vital signs within normal limits. Concern for viral pharyngitis, strep pharyngitis. Will obtain rapid strep testing. Patient is 30 weeks . Do not believe dexamethasone is appropriate. Given p.o. Tylenol. Rapid strep positive. Patient has an allergy to penicillin. Will treat with azithromycin. Given 500 mg tab in the ER. Given prescription for 4 more days of 250 mg. Recommended PCP follow-up and [employer] follow-up. Stable for discharge. General Adult HPI - General Chief complaint: Upper Respiratory Infection Stated complaint: sore throat,abd pain Time Seen by Provider: 02/11/21 08:31 Mode of Arrival: Ambulatory Limitations: No Limitations Description of Symptoms (Recalled from ER Triage Doc. by RN): TO ED PER PVT CAR WITH C/O SORETHROAT, NAUSEA AND ABD PAIN STARTING THIS AM. PT APPROX 30 WEEKS PREG. G5, P3, AB1. PT DENIES ANY FEVER, CHILLS, VAG D/C. - History of Present Illness HPI narrative: 25-year-old G4, P3 female presenting to the emergency department with sore throat. Symptoms started this morning when she woke up. Had pain with swallowing. Feels like it is dry, burning. Pain on both sides of the throat. When she looked in the mirror thought she could see white lesions. She has had a tonsillectomy. A close contact had strep pharyngitis last week. She is about 32 weeks . Denies nausea, vomiting, lower abdominal pain, cramping, contractions, vaginal bleeding, vaginal discharge. No medications prior to arrival. No difficulty breathing, cough, shortness of breath - Related Data Home Medications Medication Instructions Recorded Confirmed ser
[2021-02-11 09:30] VITALS: BP 111/64; PULSE 74; O2SAT 95
[2021-02-11 09:46] LABS: Strep Scrn Group A (Rapid) Positive (Negative)
[2021-02-11 10:15] VITALS: BP 123/74; PULSE 78; RESP 16; TEMP 36.6; O2SAT 97
== END 2021-02-11 10:21 | disposition home or self-care (01) ==
PROVIDERS: Emergency Provider Emergency Medicine; PCP Emergency Medicine
DX: J02.0 Streptococcal pharyngitis (principal); Z3A.32 32 weeks gestation of pregnancy; F41.8 Other specified anxiety disorders
CPT/HCPCS: 87430; 99282

== ENCOUNTER 2021-12-16 17:55 | Emergency (ER) | payer OTHER, SELFPAY ==
[2021-12-16 18:09] VITALS: BP 133/47; PULSE 93; RESP 20; TEMP 36.8; O2SAT 100; BMI 24.5
--- NOTE | 2021-12-16 18:28 | XR_ITS ---
PROCEDURE INFORMATION: Exam: XR Chest Exam date and time: 12/16/2021 6:39 PM Age: 26 years old Clinical indication: Pain; Chest pressure; Additional info: Cp TECHNIQUE: Imaging protocol: Radiologic exam of the chest. Views: 2 views. COMPARISON: [facility] CT cervical spine wo con 03/23/2018 6:54 PM FINDINGS: Lungs: Unremarkable. No consolidation. Pleural spaces: Unremarkable. No pleural effusion. No pneumothorax. Heart/Mediastinum: Unremarkable. No cardiomegaly. Bones/joints: Median sternotomy. IMPRESSION: 1. No acute pathology. 2. Median sternotomy.
--- NOTE | 2021-12-16 18:31 | ECG_ITS ---
APPROVED REPORT Exam: Resting ECG HR:94 bpm ECG Measurements Heart Rate 94 AXES KS 90 P 47 QRSd 86 QRS 61 QT 339 T 58 QTc 391 Conclusion SINUS RHYTHM WITH SHORT KS INTERVAL BORDERLINE ECG UNCONFIRMED REPORT Electronically signed by : Liam Moore MD 12/17/2021 08:52:41
[2021-12-16 18:33] LABS: Coronavirus 19, PCR Not Detected (NotDetected); Influenza A, PCR Not Detected (NotDetected); Influenza B, PCR Not Detected (NotDetected)
[2021-12-16 18:42] LABS: Basophils % 0.4 % (0.1-2.0); Eosinophils % 0.4 % (0.1-12.0); Hematocrit 37.2 % (37.0-47.0); Hemoglobin 11.9 g/dL (12.2-16.2); Lymphocytes # 0.6 K/mm3 (0.7-4.5); Lymphocytes % 6.3 % (10-50); Mean Corpuscular HGB Conc 31.9 g/dL (31.8-35.4); Mean Corpuscular Hemoglobin 26.5 pg (27.0-31.2); Mean Corpuscular Volume 82.9 fl (81-99); Mean Platelet Volume 7.7 fl (7.4-10.4); Monocytes # 0.3 K/mm3 (0.1-1.0); Neutrophils % 89.8 % (37.0-80.0); Platelet Count 243 K/mm3 (142-424); Red Blood Count 4.49 M/mm3 (4.20-5.40); Red Cell Distribution Width 15.3 % (11.5-17.5)
[2021-12-16 18:43] LABS: MANUAL DIFFERENTIAL MANUAL DIFFERENTIAL (MANUAL DIFF)
[2021-12-16 18:44] LABS: Anion Gap 18.8 mEq/L (5-15); Blood Urea Nitrogen 13 mg/dl (7-17); Carbon Dioxide 28 mmol/L (22.0-30.0); Chloride 100 mmol/L (98-107); Creatinine Clearance Estimated 101 mL/min (50-200); Estimated Glomerular Filt Rate 88 ml/min (>60); GFR (African American) 107 ML/MIN (>60); Glucose 100 mg/dl (74-100); Potassium 3.8 mmoL/L (3.5-5.1); Sodium 143 mmol/L (136-145)
[2021-12-16 18:57] LABS: Troponin I < 0.01 ng/ml (0.00-0.034)
[2021-12-16 19:12] LABS: Lymphocytes % 5 % (10-50); Monocytes % 3 % (2-9); Neutrophils % 85 % (42-76); Platelet Estimate Normal; RBC Morphology Normal; Total Cells Counted 100
--- NOTE | 2021-12-16 19:49 | PC.NURSE ---
Pt reports she would like to leave. States she is tired of waiting and I don't feel good and I just want to leave. I let her know the expected wait times on test and chest pain protocols. Let her know the MD has seen her EKG and should been in the room shortly, and updated on test results. Pt states she still would like to leave. I let the MD know and she signed out AMA. PIV removed and pt left with a family member.
[2021-12-16 20:41] VITALS: BP 130/45; PULSE 89; RESP 18; TEMP 36.6; O2SAT 99
== END 2021-12-16 20:43 | disposition left against medical advice (07) ==
PROVIDERS: Emergency Provider Emergency Medicine; PCP Emergency Medicine
DX: R07.9 Chest pain, unspecified (principal); Z53.21 Procedure and treatment not carried out due to patient leaving prior to being seen by health care provider
CPT/HCPCS: 71046; 80048; 84484; 85007; 85025; 93005; C9803; U0003; U0005

== ENCOUNTER → 2022-03-20 09:20 | Outpatient (CLI) | payer OTHER, SELFPAY ==
[2022-03-20 09:52] LABS: Basophils # 0.1 K/mm3 (0-0.2); Basophils % 0.7 % (0.1-2.0); Eosinophils # 0.1 K/mm3 (0.0-0.4); Eosinophils % 1.5 % (0.1-12.0); Hematocrit 38.9 % (37.0-47.0); Hemoglobin 12.7 g/dL (12.2-16.2); Lymphocytes # 2.1 K/mm3 (0.7-4.5); Lymphocytes % 23.5 % (10-50); Mean Corpuscular HGB Conc 32.5 g/dL (31.8-35.4); Mean Corpuscular Hemoglobin 26.5 pg (27.0-31.2); Mean Corpuscular Volume 81.5 fl (81-99); Mean Platelet Volume 7.4 fl (7.4-10.4); Monocytes # 0.5 K/mm3 (0.1-1.0); Neutrophils # 6.2 K/mm3 (1.8-7.8); Neutrophils % 69.2 % (37.0-80.0); Platelet Count 260 K/mm3 (142-424); Red Blood Count 4.77 M/mm3 (4.20-5.40); Red Cell Distribution Width 15.4 % (11.5-17.5); White Blood Count 8.9 K/mm3 (4.8-10.8)
[2022-03-20 10:33] LABS: Alanine Aminotransferase 15 U/L (12-78); Albumin Level 5.1 g/dl (3.5-5.0); Alkaline Phosphatase 72 U/L (38-126); Anion Gap 11.9 mEq/L (5-15); Aspartate Amino Transferase 23 U/L (14-36); Bilirubin,Direct 0.2 mg/dl (0.0-0.4); Bilirubin,Indirect 0.3 mg/dL (0.0-0.9); Bilirubin,Total 0.5 mg/dl (0.2-1.3); Bilirubin,Unconjugated 0.3 mg/dL (0.0-1.1); Blood Urea Nitrogen 10 mg/dl (7-17); Calcium 9.4 mg/dl (8.4-10.2); Carbon Dioxide 27 mmol/L (22.0-30.0); Chloride 106 mmol/L (98-107); Chol/HDL Ratio 3.1 (1-3.5); Cholesterol 156 mg/dl (140-200); Estimated Glomerular Filt Rate 102 ml/min (>60); GFR (African American) 123 ML/MIN (>60); Glucose 100 mg/dl (74-100); HDL Cholesterol 51 mg/dl (40-60); Potassium 3.9 mmoL/L (3.5-5.1); Sodium 141 mmol/L (136-145); Total Protein,Serum 7.7 g/dl (6.3-8.2); Triglycerides 85 mg/dl (30-150); VLDL Cholesterol 17 mg/dL (0-40)
[2022-03-20 10:44] LABS: Direct LDL Cholesterol 85.58 mg/dL (100-129)
[2022-03-20 10:51] LABS: Free T4 (Free Thyroxine) 0.94 ng/dl (0.78-2.19)
[2022-03-20 11:07] LABS: Thyroid Stimulating Hormone 3.17 uIU/mL (0.465-4.68)
== END ==
PROVIDERS: PCP Emergency Medicine; Visit Provider Physician Assistant
DX: R55 Syncope and collapse (principal); R06.00 Dyspnea, unspecified; R07.9 Chest pain, unspecified; R42 Dizziness and giddiness; Q21.1 Atrial septal defect; R94.31 Abnormal electrocardiogram [ECG] [EKG]; E04.9 Nontoxic goiter, unspecified; R53.83 Other fatigue
CPT/HCPCS: 36415; 80048; 80061; 80076; 83735; 84439; 84443; 85025; 93270

== ENCOUNTER → 2022-04-16 13:05 | Outpatient (CLI) | payer OTHER, SELFPAY ==
--- NOTE | 2022-04-16 13:16 | US_ITS ---
FINAL REPORT CLINICAL HISTORY: thyroid enlargement. FINDINGS: THYROID ULTRASOUND Sonographic images of the thyroid was obtained. The right lobe of the thyroid measures 4.7 x 1.6 x 1.1 cm. The left lobe of the thyroid measures 4.6 x 1.7 x 1.2 cm. The isthmus measures 2 mm. There are multiple small cysts bilaterally measuring 1-2 mm. No dominant mass or cyst is identified. IMPRESSION: Mildly enlarged thyroid with heterogeneous echotexture. Multiple small cysts bilaterally with no dominant mass or cyst identified. Reviewed, Interpreted and Dictated by Dez Uriostegui III, MD Transcribed by Lisa Bacon Authenticated and [facility]
== END ==
PROVIDERS: PCP Emergency Medicine; Visit Provider Physician Assistant
DX: E04.9 Nontoxic goiter, unspecified (principal); R55 Syncope and collapse; R06.00 Dyspnea, unspecified; R07.9 Chest pain, unspecified; R42 Dizziness and giddiness; R94.31 Abnormal electrocardiogram [ECG] [EKG]; R53.83 Other fatigue; Z87.74 Personal history of (corrected) congenital malformations of heart and circulatory system
CPT/HCPCS: 76536; 93306

== ENCOUNTER → 2023-01-15 11:08 | Outpatient (CLI) | payer OTHER, SELFPAY | PROVIDERS: Visit Provider Physician Assistant | DX: R07.9 Chest pain, unspecified (principal); R00.0 Tachycardia, unspecified; R00.2 Palpitations; E03.9 Hypothyroidism, unspecified; Q21.19 Other specified atrial septal defect | CPT/HCPCS: 93270 ==

== ENCOUNTER 2024-01-23 23:33 | Emergency (ER) | payer OTHER, SELFPAY ==
[2024-01-23 23:35] VITALS: BP 124/65; PULSE 77; RESP 16; TEMP 36.9; O2SAT 98; BMI 23.6
--- NOTE | 2024-01-23 23:45 | ED_ITS ---
Discharge Plan Disposition Patient Disposition: Home, Self-Care Prescriptions Prescriptions: No Action desvenlafaxine succinate 50 mg tablet extended release 24 hr PO Patient Comments: TAKE 1 TABLET BY MOUTH ONCE DAILY IN THE MORNING levothyroxine 50 mcg capsule 50 mcg PO DAILY metoprolol succinate 50 mg tablet extended release 24 hr See Rx Instructions .ROUTE .COMPLEX Qty: 270 0RF Dose Instruction: TAKE 1 & 1/2 (ONE & ONE-HALF) TABLETS BY MOUTH TWICE DAILY Rx Instructions: TAKE 1 & 1/2 (ONE & ONE-HALF) TABLETS BY MOUTH TWICE DAILY budesonide-formoterol [Symbicort] 160-4.5 mcg/actuation HFA aerosol inhaler 1 puff inhalation QID PRN (Reason: shortness of breath or wheezing) 90 Days Qty: 10.2 3RF Referrals Follow up/Referrals: Provider,Referral, MD [Primary Care Provider] - See instructions Activity Restrictions/Add. Instructions Additional Instructions/Restrictions: Please follow-up with your primary care provider. Please return to the emergency department if you develop any new or worsening symptoms or become concerned for your health. Clinical Impressions Clinical Impression: Headache, Medication side effect Print Language Print Language: Telugu Discharge ED Provider: Nahun Robledo General Adult HPI General Chief complaint: Headache Stated complaint: possible reaction to new meds, nausea, dizziness Time Seen by Provider: 01/23/24 23:44 History of Present Illness HPI narrative: 28-year-old female with history of anxiety depression PTSD presents for headache and other symptoms. She reports that she took her first dose of a new antipsychotic medication Caplyta this evening. Since that time she has felt tingly and weird all over. She has also developed a headache that seems like a migraine. She reports that she does sometimes get migraines. She did not take anything at home prior to arrival. She only took a single dose of new medication. She is not on any other antipsychotics at the moment. She reports that she has some sensitivity to light and noise and feels mildly nauseous. Denies any weakness, numbness, vision changes. No fever, no trauma. Related Data Home Medications ?Medication ?Instructions ?Recorded ?Confirmed desvenlafaxine succinate 50 mg mg PO 01/15/23 02/21/23 tablet,extended release 24 hr levothyroxine 50 mcg capsule 50 mcg PO DAILY 01/15/23 02/21/23 Previous Rx's ?Medication ?Instructions ?Recorded metoprolol succinate 50 mg See Rx Instructions .Route 04/04/23 tablet,extended release 24 hr .COMPLEX #270 tabs budesonide-formoterol HFA 160 1 puff inhalation QID PRN 05/28/23 mcg-4.5 mcg/actuation aerosol shortness of breath or wheezing 90 inhaler (Symbicort) days #10.2 grams Allergies Allergy/AdvReac Type Severity Reaction Status Date / Time Penicillins Allergy Mild Verified 02/21/23 09:14 From KEFLEX Allergy Mild I-RASH Uncoded 02/21/23 09:14 SULFA (SULFONAMIDE) Allergy Mild I-RASH Uncoded 02/21/23 09:14 [facility] Disclaimer: The information contained in this section may have been updated after the patient was seen, as this information can be updated by other users. Medical History (Updated 01/24/24 @ 00:15 by Nahun Robledo MD) Asthma Tachycardia Palpitations Thyroid enlargement Fatigue Dizziness Dyspnea Chest pain Abnormal electrocardiogram [ECG] [EKG] Near syncope Surgical History H/O: hysterectomy Social History Smoking Status: Never smoker alcohol intake: current alcohol intake frequency: holidays/special occasions only substance use type: denies use current occupational status: unemployed Travel in the last 8 weeks: None household members: family housing: house Have you lived/traveled outside US in past 30 days?: No Contact w/someone who lives/traveled outside US past 30 days?: No Exposure to someone with infectious disease in past 14 days?: No Do you have a fever (greater than 100.4 F or 38 C)?: No Have you tested positive for COVID-19: No Exposed to someone with COVID-19 in past 14 days?: No Do you have a sore throat?: No Do you have a cough?: No Do you have any weakness?: No Do you have any diarrhea?: No Are you experiencing any unusual bleeding?: No Do you have any muscle aches/pain?: No Do you have any abdominal pain?: No Are you experiencing loss of taste or smell?: No Other Medical History Have you received the Flu Vaccine for this season: No Have you received the Pneumonia Vaccine: No ROS Obtained: Yes All systems reviewed & no additional complaints except as documented Physical Exam General General appearance: alert and in no apparent distress Head Head exam: atraumatic and normocephalic Eye Eye exam: Present normal appearance, PERRL and EOMI ENT ENT exam: Present normal oropharynx and normal external ear exam Neck Neck exam: Present normal inspection and full ROM Chest Chest inspection: Present normal inspection and symmetric chest wall rise; Absent tenderness Respiratory Respiratory exam: Present normal lung sounds bilaterally; Absent respiratory distress Cardiovascular Cardiovascular exam: Present regular rate and normal rhythm Abdominal Exam Abdominal exam: Present soft; Absent distention, tenderness or guarding Extremities Exam Extremities exam: Present normal inspection; Absent edema or joint swelling Back Exam Back exam: Present normal inspection; Absent tenderness Neurological Exam Neurological exam: Present alert and oriented X3; Absent motor sensory deficit Psychiatric Psychiatric exam: Present normal affect and normal mood Skin Skin exam: Present warm, dry and normal color Lymphatic Lymphatic Findings: no adenopathy Medical Decision Making Medical Records Medical records reviewed: Yes I reviewed the patient's medical records. Screening: Per USPSTF and CDC recommendations, given the prevalence of disease in our region, it is our hospital?s policy to screen for HIV and viral Hepatitis for all patients aged 18 and over and those with ongoing risk factors. Lex Inquiry Pt receiving controlled substance: No Lex was queried for this patient: No Vital Signs: 01/23/24 23:35 01/24/24 00:18 Temperature 98.4 F 98.4 F Temperature Source Oral Pulse Rate 77 Pulse Rate [Right] 77 Respiratory Rate 16 16 Blood Pressure 124/65 Blood Pressure [Right Arm] 124/65 Blood Pressure Mean [Right Arm] 84 02 Sat by Pulse Oximetry 98 Oxygen Delivery Method Room Air Room Air Lab Data Lab results reviewed: Yes I reviewed the patient's lab results. Orders (Tests/Meds): ED MEDICATIONS Discontinued Medications Generic Name Dose Route Start Last Admin Trade Name Freq PRN Reason Stop Dose Admin Acetaminophen 1,000 mg 01/24/24 00:13 01/24/24 00:18 Acetaminophen 500mg Tab PO 01/24/24 00:14 1,000 mg ONCE ONE Administration Ibuprofen 600 mg 01/24/24 00:13 01/24/24 00:18 Ibuprofen 600 Mg Tablet PO 01/24/24 00:14 600 mg ONCE ONE Administration Prochlorperazine Maleate 10 mg 01/24/24 00:13 01/24/24 00:18 Prochlorperazine 10mg Tablet PO 01/24/24 00:14 10 mg ONCE ONE Administration Medical Decision Narrative: 28-year-old female with history of PTSD and depression presents for tingly sensation after starting her new antipsychotic medication. She also has a headache. History was obtained via interactive discussion with patient, chart review. On arrival, patient is [afebrile, hemodynamically stable, satting appropriately, alert, oriented x4, GCS 15], moving all extremities spontaneously. Full physical exam performed and significant for normal neurologic exam, no physical exam abnormalities. Differential includes but is not limited to migraine headache, tension headache, allergic reaction, medication side effect. Given her description of her symptoms, this seems most likely to be a side effect of the new antipsychotic medication. No evidence of allergic reaction or other emergent pathology. With regards to her headache, patient reports that she does not want an IV and does not want to stay for treatment but is willing to take p.o. meds before she goes. She reports that she had a prior hysterectomy. She was given Tylenol, ibuprofen and Compazine at discharge. She was given strict return precautions. Procedures Risk/Benefits of Procedure(s) Were Explained: Yes Critical Care Critical Care Time Critical Care Time: No
[2024-01-24] VITALS: BP 100/53; PULSE 73; O2SAT 98
[2024-01-24 00:18] VITALS: BP 124/65; PULSE 77; RESP 16; TEMP 36.9; O2SAT 98
[2024-01-24] MEDS: IBUPROFEN 600 MG TABLET PO (00:18)
[2024-01-24] MEDS: PROCHLORPERAZINE 10MG TABLET 10 MG PO (00:18)
[2024-01-24] MEDS: ACETAMINOPHEN 500MG TAB 1000 MG PO (00:18)
== END 2024-01-24 00:23 | disposition home or self-care (01) ==
PROVIDERS: Emergency Provider Emergency Medicine
DX: R51.9 Headache, unspecified (principal); R11.0 Nausea; H53.149 Visual discomfort, unspecified; F40.298 Other specified phobia; R42 Dizziness and giddiness
CPT/HCPCS: 99283; Q0164

== ENCOUNTER 2024-04-22 20:55 | Emergency (ER) | payer OTHER, SELFPAY ==
[2024-04-22 21:08] VITALS: BP 115/76; PULSE 81; RESP 20; TEMP 37.1; O2SAT 97; BMI 24.0
--- NOTE | 2024-04-22 21:17 | XR_ITS ---
PROCEDURE INFORMATION: Exam: XR Left Ankle Exam date and time: 04/22/2024 9:15 PM Age: 29 years old Clinical indication: Pain; Ankle; Left; Additional info: Left ankle/foot injury TECHNIQUE: Imaging protocol: Radiologic exam of the left ankle. Views: 3 or more views. COMPARISON: CR Foot L 04/22/2024 9:13 PM FINDINGS: Bones/joints: Normal. No acute fracture identified. Soft tissues: Normal. IMPRESSION: No acute findings.
--- NOTE | 2024-04-22 21:17 | XR_ITS ---
PROCEDURE INFORMATION: Exam: XR Left Foot Exam date and time: 04/22/2024 9:13 PM Age: 29 years old Clinical indication: Pain; Foot; Left; Additional info: Dropped a couch on the left foot/crush injury. TECHNIQUE: Imaging protocol: Radiologic exam of the left foot. Views: 3 or more views. COMPARISON: No relevant prior studies available. FINDINGS: Bones/joints: Normal. No acute fracture identified. Soft tissues: Normal. IMPRESSION: No acute findings.
--- NOTE | 2024-04-22 21:20 | ED_ITS ---
<Statement entered by Mona Tan DO - 04/22/24 22:47> I was consulted by the LEIDY, and we discussed the complexity of the problems being addressed. I approved the treatment and management plan for this patient's care in the emergency department, thus performing a substantive portion of the medical decision making. Mona Tan DO Discharge Plan Disposition Patient Disposition: Home, Self-Care Condition: Good Prescriptions Prescriptions: No Action desvenlafaxine succinate 50 mg tablet extended release 24 hr PO Patient Comments: TAKE 1 TABLET BY MOUTH ONCE DAILY IN THE MORNING levothyroxine 50 mcg capsule 50 mcg PO DAILY metoprolol succinate 50 mg tablet extended release 24 hr See Rx Instructions .ROUTE .COMPLEX Qty: 270 0RF Dose Instruction: TAKE 1 & 1/2 (ONE & ONE-HALF) TABLETS BY MOUTH TWICE DAILY Rx Instructions: TAKE 1 & 1/2 (ONE & ONE-HALF) TABLETS BY MOUTH TWICE DAILY budesonide-formoterol [Symbicort] 160-4.5 mcg/actuation HFA aerosol inhaler 1 puff inhalation QID PRN (Reason: shortness of breath or wheezing) 90 Days Qty: 10.2 3RF Referrals Follow up/Referrals: Krissy Escalante APRN [Primary Care Provider] - See instructions Activity Restrictions/Add. Instructions Additional Instructions/Restrictions: Return to the emergency department any worsening signs or symptoms, follow-up with your family doctor, I recommend ibuprofen Tylenol, rest ice as needed for symptomatic relief. Clinical Impressions Clinical Impression: Foot pain, left Instructions Patient Instructions: DI for Foot Sprain Print Language Print Language: Panamanian Discharge ED Provider: Mona Tan General Adult HPI General Chief complaint: Extremity Injury, Lower Stated complaint: AO03/12@1930 LT ft inj Time Seen by Provider: 04/22/24 21:08 Mode of Arrival: Wheelchair Source of Information: Patient Description of Symptoms (Recalled from ER Triage Doc. by RN): pt reports she dropped a couch on her foot at 7pm. pt now complains of left foot pain on the top of the foot. History of Present Illness HPI narrative: 29-year-old female presents to the emergency department with left foot/ankle pain, patient states that she dropped a couch on my foot , this happened around 7 or 7:30 PM. The couch was crushing her foot for only a brief second, when it was removed, she denies any fever chills chest pain shortness of breath numbness tingling upper or lower extremity weakness, pain limited range of motion is present. Denies any urinary type symptomatology. Patient has no other real relevant past medical history, with the exception of asthma, ASD repaired as a child, hypothyroidism, current everyday smoker, occasional use alcohol, occasional use marijuana, distress vital grossly unremarkable. Related Data Home Medications ?Medication ?Instructions ?Recorded ?Confirmed desvenlafaxine succinate 50 mg mg PO 01/15/23 02/21/23 tablet,extended release 24 hr levothyroxine 50 mcg capsule 50 mcg PO DAILY 01/15/23 02/21/23 Previous Rx's ?Medication ?Instructions ?Recorded metoprolol succinate 50 mg See Rx Instructions .Route 04/04/23 tablet,extended release 24 hr .COMPLEX #270 tabs budesonide-formoterol HFA 160 1 puff inhalation QID PRN 05/28/23 mcg-4.5 mcg/actuation aerosol shortness of breath or wheezing 90 inhaler (Symbicort) days #10.2 grams Allergies Allergy/AdvReac Type Severity Reaction Status Date / Time Penicillins Allergy Mild Verified 02/21/23 09:14 From KEFLEX Allergy Mild I-RASH Uncoded 02/21/23 09:14 SULFA (SULFONAMIDE) Allergy Mild I-RASH Uncoded 02/21/23 09:14 PFSH [facility] Disclaimer: The information contained in this section may have been updated after the patient was seen, as this information can be updated by other users. Medical History (Updated 04/22/24 @ 22:24 by Kelsea Contreras RN) Asthma Tachycardia Palpitations Thyroid enlargement Fatigue Dizziness Dyspnea Chest pain Abnormal electrocardiogram [ECG] [EKG] Near syncope Surgical History H/O: hysterectomy Social History Smoking Status: Current every day smoker alcohol intake: current alcohol intake frequency: holidays/special occasions only substance use type: denies use current occupational status: unemployed Travel in the last 8 weeks: None household members: family housing: house Have you lived/traveled outside US in past 30 days?: No Contact w/someone who lives/traveled outside US past 30 days?: No Exposure to someone with infectious disease in past 14 days?: No Do you have a fever (greater than 100.4 F or 38 C)?: No Have you tested positive for COVID-19: No Exposed to someone with COVID-19 in past 14 days?: No Do you have a sore throat?: No Do you have a cough?: No Do you have any weakness?: No Do you have any diarrhea?: No Are you experiencing any unusual bleeding?: No Do you have any muscle aches/pain?: No Do you have any abdominal pain?: No Are you experiencing loss of taste or smell?: No Other Medical History Have you received the Flu Vaccine for this season: No Have you received the Pneumonia Vaccine: No ROS Obtained: Yes All systems reviewed & no additional complaints except as documented Physical Exam General General appearance: alert and in no apparent distress Head Head exam: atraumatic and normocephalic Eye Eye exam: Present PERRL and EOMI ENT ENT exam: Present mucous membranes moist Neck Neck exam: Present normal inspection Chest Chest inspection: Present normal inspection and symmetric chest wall rise Respiratory Respiratory exam: Present normal lung sounds bilaterally; Absent respiratory distress Cardiovascular Cardiovascular exam: Present regular rate and normal rhythm Abdominal Exam Abdominal exam: Present soft; Absent tenderness Extremities Exam Extremities exam: Present normal inspection, tenderness and other (Is mild pain palpation to the left dorsum of the foot to palpation, otherwise neurovasc intact, patient moves extremity to command, but does have some pain limited range of motion, otherwise neurovascular intact, there is no real pain to palpation to the tibia region, there is some mild pain to palp); Absent edema or joint swelling Neurological Exam Neurological exam: Present alert and oriented X3 Psychiatric Psychiatric exam: Present normal affect Skin Skin exam: Present warm and dry Medical Decision Making Medical Records Medical records reviewed: Yes I reviewed the patient's medical records. Screening: Per USPSTF and CDC recommendations, given the prevalence of disease in our [facility], it is our hospital?s policy to screen for HIV and viral Hepatitis for all patients aged 18 and over and those with ongoing risk factors. Lex Inquiry Pt receiving controlled substance: No Lex was queried for this patient: No Vital Signs: 04/22/24 21:08 04/22/24 22:21 Temperature 98.7 F 98.7 F Temperature Source Oral Pulse Rate 81 Pulse Rate [Right] 81 Respiratory Rate 20 20 Blood Pressure 115/76 Blood Pressure [Right Arm] 115/76 Blood Pressure Mean [Right Arm] 89 02 Sat by Pulse Oximetry 97 Oxygen Delivery Method Room Air Room Air Orders (Tests/Meds): ED MEDICATIONS Discontinued Medications Generic Name Dose Route Start Last Admin Trade Name Carlie PRN Reason Stop Dose Admin Ibuprofen 600 mg 04/22/24 21:20 04/22/24 21:25 Ibuprofen 600 Mg Tablet PO 04/22/24 21:21 600 mg ONCE ONE Administration ORDERS Category Date Time Status XR ankle LT min 3V Stat Exams 04/22/24 21:17 Completed XR foot LT min 3V Stat Exams 04/22/24 21:17 Completed Medical Decision Narrative: 29-year-old female presents emergency department with left foot pain/ankle injury, differential diagnose in, not limited to, Bacon fracture, pseudo Bacon fracture, foot sprain/strain, other metatarsal fracture, ankle sprain/strain, an kle fracture. Obtain x-ray of the left foot and left ankle, will give 600 mg p.o. ibuprofen for pain. I reviewed the patient's left ankle and left foot x-rays along the corresponding radiologic report, no acute findings. I discussed the results with the patient and at the bedside recommend rest ibuprofen Tylenol other anti-inflammatory medication for pain, elevation, ice. Patient and family voiced understand agree with current treatment plan/discharge plan, patient will follow-up with PCP as directed strict ED return precaution given. Critical Care Critical Care Time Critical Care Time: No
[2024-04-22] MEDS: IBUPROFEN 600 MG TABLET PO (21:25)
[2024-04-22 22:21] VITALS: BP 115/76; PULSE 81; RESP 20; TEMP 37.1; O2SAT 99
== END 2024-04-22 23:11 | disposition home or self-care (01) ==
PROVIDERS: Emergency Provider Emergency Medicine; PCP Nurse Practitioner Family
DX: M79.672 Pain in left foot (principal); Z72.0 Tobacco use; W22.8XXA Striking against or struck by other objects, initial encounter; Y93.89 Activity, other specified; Y92.9 Unspecified place or not applicable
CPT/HCPCS: 73610; 73630; 99283